=== PATIENT | male | born 1980 | race Hispanic/Latino ===

== ENCOUNTER 2019-06-15 21:10 | Emergency (ER) | payer BC | END 2019-06-15 23:44 | disposition home or self-care (01) | LOC: ERS 21:10 | DX: F43.0 Acute stress reaction (principal); J45.909 Unspecified asthma, uncomplicated; F41.9 Anxiety disorder, unspecified; F43.10 Post-traumatic stress disorder, unspecified; Z79.899 Other long term (current) drug therapy; Z87.442 Personal history of urinary calculi; Z90.49 Acquired absence of other specified parts of digestive tract | CPT/HCPCS: 93005 ==

== ENCOUNTER 2019-08-06 19:51 | Emergency (ER) | payer BC ==
[2019-08-06 20:46] LABS: Bilirubin Negative (Negative); Blood, Urine Negative (Negative); Clarity Clear (Clear); Glucose, Urine (Dipstick) Normal (Negative); Leukocyte Negative Leu/uL (Negative); Nitrite Negative (Negative); Protein, Urine (Dipstick) Negative (Neg-Trace); Urobilinogen Normal mg/dL (Less than 2)
--- NOTE | 2019-08-07 07:27 | ULT ---
TESTICULAR ULTRASOUND: Date: 08/06/2019 HISTORY: Left testicular pain. TECHNIQUE: Multiplanar Fang scale and color Doppler images were obtained in a testicular/scrotal ultrasound. Spe ctral analysis of the Doppler waveforms of the testicles were performed. FINDINGS: The testicles are normal in echogenicity without hydronephrosis or calculi and demonstrate normal, sy mmetric internal flow. There is a large left epididymal cyst measuring 4.5 cm in size. No hydrocele i s seen. No significant varicocele is seen. IMPRESSION: Large left epididymal cyst. POS: [facility]
== END 2019-08-06 22:17 | disposition home or self-care (01) ==
LOC: ERS 19:51
DX: N50.3 Cyst of epididymis (principal); J45.909 Unspecified asthma, uncomplicated; F41.9 Anxiety disorder, unspecified; F43.10 Post-traumatic stress disorder, unspecified; Z79.899 Other long term (current) drug therapy
CPT/HCPCS: 76870; 81003; 93976

== ENCOUNTER 2019-12-17 03:16 | Emergency (ER) | payer BC ==
--- NOTE | 2019-12-17 08:27 | RAD ---
CHEST ONE VIEW: HISTORY: Cough and congestion for two weeks. FINDINGS: Single view of the chest show normal sized cardiomediastinal silhouette. There is no evidence of cons olidation, mass, or pleural effusion. The bones are unremarkable. IMPRESSION: No evidence of acute cardiopulmonary disease. POS: [facility]
== END 2019-12-17 04:05 | disposition home or self-care (01) ==
LOC: ERS 03:16
DX: T78.49XA Other allergy, initial encounter (principal); R09.81 Nasal congestion; J45.909 Unspecified asthma, uncomplicated; F41.9 Anxiety disorder, unspecified; F43.10 Post-traumatic stress disorder, unspecified; Z79.899 Other long term (current) drug therapy; Z79.51 Long term (current) use of inhaled steroids
CPT/HCPCS: 71045

== ENCOUNTER 2019-12-17 18:09 | Emergency (ER) | payer BC | END 2019-12-17 19:14 | disposition home or self-care (01) | LOC: ERS 18:09 | DX: R00.0 Tachycardia, unspecified (principal); T38.0X5A Adverse effect of glucocorticoids and synthetic analogues, initial encounter; T48.6X5A Adverse effect of antiasthmatics, initial encounter; F41.9 Anxiety disorder, unspecified; J45.909 Unspecified asthma, uncomplicated; Z79.899 Other long term (current) drug therapy | CPT/HCPCS: 99283 ==